=== PATIENT | male | born 1975 | race African-American/Black ===

== ENCOUNTER 2018-05-21 09:15 | Observation (INO) | payer OTHER ==
[2018-05-21 09:26] VITALS: BMI 28.3
[2018-05-21] MEDS ORDERED: SODIUM CHLORIDE 0.9% 500 ML INFUS.BAG IV ONE (09:52)
--- NOTE | 2018-05-21 10:08 | PDOC ---
History of Present Illness - General Chief Complaint: Chest Pain Stated Complaint: CHEST PAIN Time Seen by Provider: 05/21/18 09:31 History Source: Patient Exam Limitations: No Limitations - History of Present Illness Initial Comments: 05/21/18 09:57 HPI 42 YOM with h/o HTN, asthma presenting with chest pain since last night. He describes a left sided, nonradiating and intermittent chest pain as sharp and stabbing. did state the pain intensified when he walked into the ED and while driving himself in today. no alleviating factors. denies any particular triggers or stress. Associated with diffuse chest tightness as well and dizziness, where he feels lightheaded and about to fall over, but no syncope.. Currently no chest pain. h/o admission for chest pain in 2014 with normal echo and stress test. Follows with Dr Orantes, but has not followed with registered representative since his last admission in 2014 for CP in setting of poor control of HTN. Denies fever, chills, SOB, palpitation, dizziness, weakness, N, V, D, abdominal pain, bladder and bowel problems, leg swelling, weakness or paresthesias., No sick contacts or travel. No new changes in medications. Has BP controlled with diet and takes his medications Allergies: NKDA Past Medical History: HTN, asthma Social history: Lives with family. No smoking. No alcohol. No illicit drugs. Surgical history: sacral fistula PMD: Dr Lamberto DICKERSON Constitutional: no fevers or chills. HEENT: +dizziness. no headache. No congestion. No visual/hearing disturbances. CVS: no syncope or palp. +chest pain Resp: no sob. No cough. Gastrointestinal: no abdominal pain, nausea or vomiting. MUSCULOSKELETAL: No joint pain and swelling. No neck or back pain. SKIN: no redness or skin changes, no discharge, no rash. No wounds. Hematologic: no easy bruising/bleeding. NEUROLOGIC: +dizziness. No headache, LOC or altered mental status. No weakness, numbness or tingling. Allergic/Immunologic: no allergies All other systems reviewed and negative, or as documented in HPI. PE: General: Well appearing, awake and alert, NAD. HEENT: NCAT, PERRL, EOMI, clear conjunctiva, anicteric, moist mucus membranes, clear oropharynx, no oral lesions.. Neck: neck supple, FROM Resp: CTAB, normal and even respirations, no respiratory distress CVS: RRR, no murmurs, 2+ peripheral pulses throughout, no peripheral edema Abdomen: soft, NTND, no peritoneal signs. Back: nontender, normal inspection and ROM MSK: no edema, BUENO x4, ROM intact. No clubbing or cyanosis. normal bulk and tone. Extremities: no calf tenderness Neuro: alert, oriented appropriately; no focal neurologic deficits, no cerebellar defects, no nystagmus. 5/5 goldbeater and prox/distal strength in all extrem. SILT. speech clear. Skin: warm and well perfused, cap refill <2 sec, normal color Past History - Past Medical History Allergies/Adverse Reactions: Allergies Allergy/AdvReac Type Severity Reaction Status Date / Time No Known Drug Allergies Allergy Verified 05/21/18 09:26 all bright fruit Allergy Severe throat Uncoded 05/21/18 09:26 swelling Home Medications: Ambulatory Orders NK [No Known Home Medication] 05/21/18 Asthma: Yes (Childhood Asthma) COPD: No HTN: Yes (off medication since weight loss) - Surgical History Abdominal Surgery: No Appendectomy: No Cardiac Surgery: No Cholecystectomy: No - Immunization History Immunization Up to Date: Yes - Suicide/Smoking/Psychosocial Hx Smoking Status: No Smoking History: Never smoked Have you smoked in the past 12 months: No Number of Cigarettes Smoked Daily: 0 Hx Alcohol Use: No Drug/Substance Use Hx: No Substance Use Type: None Hx Substance Use Treatment: No *Physical Exam - Vital Signs Last Vital Signs Temp Pulse Resp BP Pulse Ox 98 F 61 18 125/74 98 05/21/18 09:22 05/21/18 12:16 05/21/18 12:16 05/21/18 12:16 05/21/18 12:16 Heart Score/ECG Review - History History: Slightly suspicious - Electrocardiogram EKG: Non specific repolarization disturbance - Age Age: </= 45 - Risk Factors Risk Factors Heart Score: Yes Hx Hypertension Based on the list above the patient has:: 1-2 risk factors - Troponin Troponin: </= normal limit - Score Heart Score - Total: 2 - ECG Impressions Comment:: 05/21/18 10:33 EKG normal sinus rhythm, no interval abnormalities, narrow QRS, T wave segments and morphology normal. ST segments in precordial and lateral leads upsloping and mildly elevated, appearance of benign early repolarization; nonspecific T wave flattening in AVL only; unchanged EKG from prior 05/21/18 10:34 Moderate Sedation - Procedure Monitoring Vital Signs: Procedure Monitoring Vital Signs Temperature 98 F 05/21/18 09:22 Pulse Rate 61 05/21/18 12:16 Respiratory Rate 18 05/21/18 12:16 Blood Pressure 125/74 05/21/18 12:16 O2 Sat by Pulse Oximetry (%) 98 05/21/18 12:16 ED Treatment Course - LABORATORY CBC & Chemistry Diagram: 05/21/18 10:00 05/21/18 10:00 - ADDITIONAL ORDERS Additional order review: Laboratory Results 05/21/18 05/21/18 10:00 10:00 D-Dimer 227 Sodium 140 Potassium 3.9 Chloride 106 Carbon Dioxide 29 Anion Gap 5 L BUN 12 Creatinine 1.2 Creat Clearance w eGFR > 60 Random Glucose 90 Calcium 8.9 Total Bilirubin 0.8 AST 16 ALT 29 Alkaline Phosphatase 80 Troponin I < 0.02 B-Natriuretic Peptide 38.2 Total Protein 7.4 Albumin 4.2 05/21/18 10:00 RBC 5.03 MCV 87.4 MCHC 34.8 RDW 13.4 MPV 8.0 Neutrophils % 46.2 Lymphocytes % 40.6 H Monocytes % 10.8 H Eosinophils % 1.4 D Basophils % 1.0 - RADIOLOGY Radiology Studies Ordered: Category Date Time Status HEAD CT WITHOUT CONTRAST [CT] Stat CT Scan 05/21/18 11:10 Taken CHEST PA & LAT [RAD] Stat Radiology 05/21/18 09:37 Completed - Medications Given in the ED: ED Medications Discontinued Medications Generic Name Dose Route Start Last Admin Trade Name Freq PRN Reason Stop Dose Admin Acetaminophen 650 mg 05/21/18 11:16 05/21/18 11:27 Tylenol - PO 05/21/18 11:17 650 mg ONCE ONE Administration Aspirin 324 mg 05/21/18 11:16 05/21/18 11:27 Asa - PO 05/21/18 11:17 324 mg ONCE ONE Administration Nitroglycerin 0.4 mg 05/21/18 11:16 05/21/18 11:27 Nitrostat - SL 05/21/18 11:17 0.4 mg ONCE ONE Administration Sodium Chloride 1,000 ml 05/21/18 09:52 05/21/18 10:16 Normal Saline - IV 05/21/18 09:53 1,000 ml ONCE ONE Administration Medical Decision Making - Medical Decision Making 05/21/18 10:31 hpi as documented DDx SOB: ACS, PE, CHF, pulmonary edema, pleurisy, pneumonia, viral syndrome. effusion. anemia, electrolyte/metabolic derangements. Considered but clinically doubt based on HPI and PE: Historically not abrupt in onset, tearing or ripping, pulses symmetric, no evidence of aortic dissection. no e/o zoster or esophageal perf, ptx vitals wnl, no tachycardia or respiratory distress. labs and lytes remarkable for minor leukopenia, but normal trop and bnp, no s/s infection. EKG normal sinus rhythm, no interval abnormalities, narrow QRS, T wave segments and morphology normal. ST segments in precordial and lateral leads upsloping and mildly elevated, appearance of benign early repolarization; nonspecific T wave flattening in AVL only; unchanged from prior EKG Chest pain HEART score 2 which denotes low risk for MACE at 30d. ED course: initially CP free at 1115AM at CT scan, pt clutched his left chest c/o tightness and pain. repeat EKG and VS - unchanged, NSR with VARGAS as above given ASA and nitro for the chest pain, reassessed and improved CT head neg for acute pathology. CXR no acute pathology, no effusion, no infiltrate, normal cardiac silhouette. plan to admit obs for r/o ACS/NATHAN, serial trop/EKG, given recurrent CP and some risk factors and poor cards followup. inpatient echo/stress repeat given last one 2014 and recurrent/exertional symptoms spoke with and admit to Dr Orantes, discussion on impression and plan/management pt made aware of impression and plan, agreeable. 05/21/18 12:01 05/21/18 13:12 *DC/Admit/Observation/Transfer Diagnosis at time of Disposition: Near syncope, Dizziness Chest pain Qualifiers: Chest pain type: unspecified Qualified Code(s): R07.9 - Chest pain, unspecified - Discharge Dispostion Condition at time of disposition: Guarded Decision to Admit order: Yes Decision to Admit order Date/Time: - Referrals - Patient Instructions - Post Discharge Activity
[2018-05-21 10:09] LABS: EOS % 1.4 % (0-4.5); HEMOGLOBIN 15.3 GM/dL (11.7-16.9); LYMPH % 40.6 % (8-40); MCH 30.4 pg (25.7-33.7); MCHC 34.8 g/dl (32.0-35.9); MEAN CELL VOLUME 87.4 fl (80-96); MONO % 10.8 % (3.8-10.2); NEUT % 46.2 % (42.8-82.8); PLATELET COUNT 209 K/MM3 (134-434); RBC 5.03 M/mm3 (4.00-5.60); RDW 13.4 % (11.9-15.9); WHITE BLOOD COUNT 3.2 K/mm3 (4.0-10.0)
[2018-05-21 10:26] LABS: ALBUMIN 4.2 g/dl (3.4-5.0); ALK PHOS 80 U/L (45-117); ANION GAP 5 MMOL/L (8-16); BILIRUBIN,TOTAL 0.8 mg/dL (0.2-1); BLOOD UREA NITROGEN 12 mg/dL (7-18); CALCIUM 8.9 mg/dL (8.5-10.1); CHLORIDE 106 mmol/L (98-107); CO2 29 mmol/L (21-32); CREATININE 1.2 mg/dL (0.55-1.3); GLUCOSE,RANDOM 90 mg/dL (74-106); N-TERMINAL BNP 38.2 pg/ml (5-125); POTASSIUM 3.9 mmol/L (3.5-5.1); SGOT/AST 16 U/L (15-37); SGPT/ALT 29 U/L (13-61); SODIUM 140 mmol/L (136-145); TOT PROT 7.4 g/dl (6.4-8.2)
[2018-05-21] MEDS ORDERED: ASPIRIN 81 MG CHEWABLE TABLETS PO ONE (11:16)
[2018-05-21] MEDS ORDERED: NITROGLYCERIN SUBLINGUAL 1/150 0.4 MG TAB SL ONE (11:16)
[2018-05-21] MEDS ORDERED: ACETAMINOPHEN 325 MG TABLET (FP) PO ONE (11:16)
[2018-05-21] MEDS ORDERED: ASPIRIN 81 MG CHEWABLE TABLETS ONE (11:23)
[2018-05-21] MEDS ORDERED: ACETAMINOPHEN 325 MG TABLET (FP) ONE (11:23)
--- NOTE | 2018-05-21 12:50 | EKG ---
Test Reason : Blood Pressure : / mmHG Vent. Rate : 051 BPM Atrial Rate : 051 BPM P-R Int : 206 ms QRS Dur : 122 ms QT Int : 424 ms P-R-T Axes : 072 -05 050 degrees QTc Int : 390 ms POOR DATA QUALITY, INTERPRETATION MAY BE ADVERSELY AFFECTED SINUS BRADYCARDIA NON-SPECIFIC INTRA-VENTRICULAR CONDUCTION DELAY WHEN COMPARED WITH ECG OF 21-MAY-2018 09:20, NO SIGNIFICANT CHANGE WAS FOUND Confirmed by DIANA MARRERO MD ([id number]) on 05/21/2018 12:50:01 PM Referred By: Confirmed By:DIANA MARRERO MD
--- NOTE | 2018-05-21 12:54 | EKG ---
Test Reason : Blood Pressure : / mmHG Vent. Rate : 066 BPM Atrial Rate : 066 BPM P-R Int : 210 ms QRS Dur : 122 ms QT Int : 388 ms P-R-T Axes : 063 -15 057 degrees QTc Int : 406 ms SINUS RHYTHM WITH 1ST DEGREE A-V BLOCK NON-SPECIFIC INTRA-VENTRICULAR CONDUCTION DELAY WHEN COMPARED WITH ECG OF 27-MAR-2016 22:53, NO SIGNIFICANT CHANGE WAS FOUND Confirmed by DIANA MARRERO MD ([id number]) on 05/21/2018 12:54:34 PM Referred By: Confirmed By:DIANA MARRERO MD
--- NOTE | 2018-05-21 16:05 | HP ---
Admitting History and Physical - Primary Care Physician PCP: Tyler Orantes - Admission Chief Complaint: CP. Dizziness History of Present Illness: Pt with Hx/o HTN (Diet and exercise controlled) started to experience dizziness with standing up over last couple of months and last night and this AM chest pressure and then stabbing CP, associated with dizziness and SOB. History Source: Patient - Past Medical History Cardiovascular: Yes: HTN, Hyperlipdemia, Other (Palpitations) Pulmonary: Yes: Asthma - Smoking History Smoking history: Never smoked Have you smoked in the past 12 months: No Aproximately how many cigarettes per day: 0 - Alcohol/Substance Use Hx Alcohol Use: No Home Medications - Allergies Allergies/Adverse Reactions: Allergies Allergy/AdvReac Type Severity Reaction Status Date / Time No Known Drug Allergies Allergy Verified 05/21/18 09:26 all bright fruit Allergy Severe throat Uncoded 05/21/18 09:26 swelling - Home Medications Home Medications: Ambulatory Orders NK [No Known Home Medication] 05/21/18 Review of Systems - Review of Systems Constitutional: denies: Chills, Fever Eyes: denies: Blurred Vision, Double Vision HENT: denies: Ear Discharge, Ear Pain, Nasal Congestion, Throat Pain Neck: denies: Pain on Movement, Stiffness Cardiovascular: denies: Chest Pain (now), Edema, Palpitations Respiratory: denies: Cough, SOB on Exertion, Wheezing Gastrointestinal: denies: Abdominal Pain, Diarrhea, Nausea, Vomiting Genitourinary: denies: Burning, Discharge Musculoskeletal: denies: Back Pain, Extremity Pain, Muscle Pain Integumentary: denies: Blister, Rash Neurological: denies: Change in LOC, Change in Speech, Numbness, Unsteady Gait, Weakness Endocrine: denies: Excessive Sweating, Intolerance to Cold Hematology/Lymphatic: denies: Easily Bruised, Excessive Bleeding Psychiatric: denies: Altered Sleep Pattern, Anxiety, Depression Physical Examination Vital Signs: Vital Signs Temperature 98.1 F 05/21/18 14:51 Pulse Rate 74 05/21/18 14:51 Respiratory Rate 18 05/21/18 14:51 Blood Pressure 148/82 05/21/18 14:51 O2 Sat by Pulse Oximetry (%) 98 05/21/18 14:51 Constitutional: Yes: No Distress, Calm Eyes: Yes: Conjunctiva Clear, EOM Intact HENT: No: Epistaxis, Pharyngeal Erythema, Rhinnorhea Neck: Yes: Trachea Midline. No: Lymphadenopathy Cardiovascular: Yes: Regular Rate and Rhythm, Murmur (1/6), S1, S2 Respiratory: Yes: Regular, CTA Bilaterally. No: Rales Gastrointestinal: Yes: Normal Bowel Sounds, Soft. No: Tenderness ...Rectal Exam: Yes: Deferred Musculoskeletal: No: Back Pain, Joint Stiffness, Joint Swelling Edema: No Integumentary: No: Bruising, Rash Neurological: Yes: Alert, Oriented, Other (motor and sensory examiantion is symmetric in UE/ LE/ face) Psychiatric: Yes: Alert, Oriented. No: Agitated Labs: CBC, BMP 05/21/18 10:00 05/21/18 10:00 Imaging - Results Chest X-ray: Report Reviewed Problem List - Problems (1) HTN (hypertension) Code(s): I10 - ESSENTIAL (PRIMARY) HYPERTENSION (2) Asthma Code(s): J45.909 - UNSPECIFIED ASTHMA, UNCOMPLICATED (3) Chest pain Code(s): R07.9 - CHEST PAIN, UNSPECIFIED Qualifiers: Chest pain type: unspecified Qualified Code(s): R07.9 - Chest pain, unspecified (4) Dizziness Code(s): R42 - DIZZINESS AND GIDDINESS (5) HLD (hyperlipidemia) Code(s): E78.5 - HYPERLIPIDEMIA, UNSPECIFIED (6) Leukopenia Code(s): D72.819 - DECREASED WHITE BLOOD CELL COUNT, UNSPECIFIED Assessment/Plan PT is monitored on Telemetry Serial CE Cardio Consult AM labs Pt. case was d/w pt's nurse
[2018-05-21] MEDS ORDERED: ATORVASTATIN CA 20 MG TABLET (FP) PO ONE ×2 (16:09→16:30)
[2018-05-21 16:28] LABS: MAGNESIUM 2.1 mg/dL (1.8-2.4)
[2018-05-22 06:26] VITALS: TEMP 97.6
[2018-05-22 07:23] LABS: BASO % 0.7 % (0-2.0); EOS % 2.9 % (0-4.5); HEMATOCRIT 42.8 % (35.4-49); HEMOGLOBIN 15.2 GM/dL (11.7-16.9); LYMPH % 49.3 % (8-40); MCH 31.6 pg (25.7-33.7); MCHC 35.5 g/dl (32.0-35.9); MEAN PLT VOLUME 8.4 fl (7.5-11.1); MONO % 9.1 % (3.8-10.2); PLATELET COUNT 183 K/MM3 (134-434); RBC 4.81 M/mm3 (4.00-5.60); RDW 13.4 % (11.9-15.9); WHITE BLOOD COUNT 3.8 K/mm3 (4.0-10.0)
[2018-05-22 08:06] LABS: ANION GAP 5 MMOL/L (8-16); BLOOD UREA NITROGEN 14 mg/dL (7-18); CALCIUM 8.3 mg/dL (8.5-10.1); CHLORIDE 106 mmol/L (98-107); CO2 27 mmol/L (21-32); GLUCOSE,RANDOM 90 mg/dL (74-106); POTASSIUM 4.1 mmol/L (3.5-5.1); SODIUM 139 mmol/L (136-145)
--- NOTE | 2018-05-22 08:33 | DS ---
Physical Examination Vital Signs: Vital Signs Temperature 97.6 F 05/22/18 06:00 Pulse Rate 60 05/22/18 06:00 Respiratory Rate 20 05/22/18 06:00 Blood Pressure 136/82 05/22/18 06:00 O2 Sat by Pulse Oximetry (%) 98 05/21/18 15:45 Findings/Remarks: feeling better no CP/SOB no headaches or dizziness now but described vertigo with standing up and moving his head CE negative; seen by cardiology cleared to go home tests labs EKG CT xrays d/w pt; WBC borderline low advisaed heme eval outpt dr Guevara over the next few weeks he said he will will order meclizine prn also advised f/u with PCP, cardiology within 1-2 weeks after DC and to see neurology dr Tom and ENT dr Conroy as outpt he said he will Constitutional: Yes: No Distress, Calm Eyes: Yes: Conjunctiva Clear HENT: Yes: Atraumatic Neck: Yes: Supple Cardiovascular: Yes: Regular Rate and Rhythm Respiratory: Yes: CTA Bilaterally Gastrointestinal: Yes: Soft. No: Tenderness Renal/: No: CVA Tenderness - Left, CVA Tenderness - Right Musculoskeletal: No: Joint Stiffness, Joint Swelling Extremities: No: Cold, Cool, Cyanosis Edema: No Integumentary: No: Rash, Venous Stasis Changes Neurological: Yes: WNL, Alert, Oriented ...Motor Strength: WNL Psychiatric: Yes: WNL, Alert, Oriented. No: Agitated, Suicidal Ideation Labs: CBC, BMP 05/22/18 05:15 05/22/18 05:15 Discharge Summary Reason For Visit: ATYPICAL CHEST PAIN Current Active Problems Asthma (Acute) Chest pain (Acute) Dizziness (Acute) HLD (hyperlipidemia) (Acute) HTN (hypertension) (Acute) Leukopenia (Acute) Near syncope (Acute) Procedures: Principal: admitted for OBS for CP and diZziness Other Procedures: monitored in telemetry, CE negative; head CT negative Hospital Course: meclizine prn; felt better; DC home and f/u as advised. Condition: Guarded - Instructions Diet, Activity, Other Instructions: f/u PCP and cardiology in 1-2 weeks check labs CBC CMP in 1-[address] Guevara for low WBC see neurology for dizziness dr Tom, ENT dr CONROY also advised labs and heme eval outpt for low WBC good po hydration RTER if worse or recurrent c/o d/w pt Referrals: Tyler Orantes MD [Primary Care Provider] - Stevenson Tom MD [Staff Physician] - Joe Guevara MD [Staff Physician] - Guy Tovar MD [Staff Physician] - Wei Conroy MD [Staff Physician] - Disposition: HOME - Home Medications Comprehensive Discharge Medication List: Ambulatory Orders NK [No Known Home Medication] 05/21/18
[2018-05-22 09:11] LABS: CHOLESTEROL 169 mg/dL (50-200); HDL CHOLESTEROL 56 mg/dL (40-60); TRIGLYCERIDES 101 mg/dL (0-150)
[2018-05-22 09:22] VITALS: BP 138/71; PULSE 82
[2018-05-22 09:47] LABS: ERYTHROCYTE SEDIMENTATION RATE 3 mm/hr (0-10)
--- NOTE | 2018-05-22 09:57 | CON.CARD ---
Consult Consult Specialty:: Cardiology Referred by:: Tyler Orantes MD Reason for Consultation:: Atypical chest pain - History of Present Illness Chief Complaint: Sharp chest pain and light-headedness History of Present Illness: 42-year-old male with past medical history significant for hypertension, asthma , noncompliance with medications and f/u presents for several days of non- exertional, atypical sharp stabbing chest discomfort associated with positional light-headedness similar to previous presentation 2014 without EKG changes, denies dyspnea on exertion, true syncope, orthopnea, PND or LE edema. Since admission, symptoms have resolved, ruled out for IL. - History Source History Provided By: Patient Limitations to Obtaining History: No Limitations - Past Medical History Cardio/Vascular: Yes: HTN, Hyperlipdemia, Other (Palpitations) Pulmonary: Yes: Asthma - Alcohol/Substance Use Hx Alcohol Use: No - Smoking History Smoking history: Never smoked Have you smoked in the past 12 months: No Aproximately how many cigarettes per day: 0 Home Medications - Allergies Allergies/Adverse Reactions: Allergies Allergy/AdvReac Type Severity Reaction Status Date / Time No Known Drug Allergies Allergy Verified 05/21/18 09:26 all bright fruit Allergy Severe throat Uncoded 05/21/18 09:26 swelling - Home Medications Home Medications: Ambulatory Orders NK [No Known Home Medication] 05/21/18 Review of Systems - Review of Systems Cardiovascular: reports: Chest Pain Neurological: reports: Dizziness Vital Signs: Vital Signs Temperature 97.6 F 05/22/18 09:22 Pulse Rate 82 05/22/18 09:22 Respiratory Rate 20 05/22/18 09:22 Blood Pressure 138/71 05/22/18 09:22 O2 Sat by Pulse Oximetry (%) 98 05/21/18 15:45 Constitutional: Yes: No Distress, Calm, Thin Neck: Yes: Supple Respiratory: Yes: Regular, CTA Bilaterally Gastrointestinal: Yes: Normal Bowel Sounds, Soft Cardiovascular: Yes: Regular Rate and Rhythm JVD: No Carotid Bruit: No Heart Sounds: Yes: S1, S2 Edema: No - Other Data Labs, Other Data: CBC, BMP 05/22/18 05:15 05/22/18 05:15 Troponin, BNP 05/21/18 05/21/18 05/21/18 10:00 12:28 17:30 Troponin I < 0.02 < 0.02 < 0.02 B-Natriuretic Peptide 38.2 Troponin, BNP 05/21/18 05/21/18 05/21/18 10:00 12:28 17:30 Troponin I < 0.02 < 0.02 < 0.02 B-Natriuretic Peptide 38.[address]-T changes Ejection Fraction %: LVEF > or = 40 % Problem List - Problems (1) Asthma Code(s): J45.909 - UNSPECIFIED ASTHMA, UNCOMPLICATED Qualifiers: Asthma severity: mild Asthma persistence: intermittent Asthma complication type: uncomplicated Qualified Code(s): J45.20 - Mild intermittent asthma, uncomplicated (2) HTN (hypertension) Code(s): I10 - ESSENTIAL (PRIMARY) HYPERTENSION Qualifiers: Hypertension type: essential hypertension Qualified Code(s): I10 - Essential (primary) hypertension (3) Near syncope Code(s): R55 - SYNCOPE AND COLLAPSE (4) Atypical chest pain Code(s): R07.89 - OTHER CHEST PAIN Assessment/Plan 1. Chest pain syndrome with atypical features 2. Hypertension/HCVD 3. Asthma 4. Positional dizziness PLAN: 1. Ruled out for IL 2. Previously on lisinopril 3. Echocardiogram and ETT from 2015 reviewed 4. Patient may be dced with f/u in office for further cardiovascular w/u, thank you for consultative opportunity -
[2018-05-22] MEDS ORDERED: MECLIZINE HCL 12.5 MG TABLET PO PRN (10:42)
== END 2018-05-22 12:22 | disposition home or self-care (01) ==
LOC: JER 09:15 → JERBED 11:58 → J4W 14:58
PROVIDERS: ADMIT Specialist; ATTEND Specialist
PROC: 3E0337Z Introduction of Electrolytic and Water Balance Substance into Peripheral Vein, Percutaneous Approach (ICD-10-PCS; principal; 2018-05-21)
DX: R07.89 Other chest pain (principal); R55 Syncope and collapse; R42 Dizziness and giddiness; E78.5 Hyperlipidemia, unspecified; D72.819 Decreased white blood cell count, unspecified
CPT/HCPCS: 36415; 70450-TC; 71046-TC-FY; 80048; 80053; 80061; 82550; 82553; 82607; 82728; 83721; 83735; 83880; 84155; 84156; 84157; 84165; 84439; 84443; 84484; 85025; 85379; 85651; 86038; 93005; 93010; 99285-25; G0378

== ENCOUNTER 2024-04-14 20:22 | Emergency (ER) | payer OTHER ==
[2024-04-14 20:33] VITALS: RESP 18; TEMP 98.7; BMI 30.4
[2024-04-14] MEDS ORDERED: METOCLOPRAMIDE HCL INJECTION 10 MG/2 ML VIAL ONE (21:38)
[2024-04-14] MEDS ORDERED: ACETAMINOPHEN INJECTION 100 ML ONE (21:38)
[2024-04-14] MEDS: SODIUM CHLORIDE 0.9% 500 ML INFUS.BAG IV ONE (21:56)
[2024-04-14] MEDS: METOCLOPRAMIDE HCL INJECTION 10 MG/2 ML VIAL IVPUSH ONE (21:57)
[2024-04-14] MEDS: ACETAMINOPHEN 1000 MG/100 ML BAG IVPB ONE (21:57)
[2024-04-14 22:10] LABS: BASO % 0.7 % (0-2.0); EOS % 1.2 % (0-4.5); HEMATOCRIT 48.3 % (35.4-49); HEMOGLOBIN 16.2 GM/dL (11.7-16.9); LYMPH % 39.3 % (8-40); MCH 29.6 pg (25.7-33.7); MCHC 33.6 g/dl (32.0-35.9); MEAN CELL VOLUME 88.2 fl (80-96); MEAN PLT VOLUME 7.8 fl (7.5-11.1); MONO % 12.4 % (3.8-10.2); NEUT % 46.4 % (42.8-82.8); PLATELET COUNT 206 10^3/uL (134-434); RBC 5.48 M/mm3 (4.00-5.60); RDW 13.7 % (11.9-15.9); WHITE BLOOD COUNT 6.1 K/mm3 (4.0-10.0)
[2024-04-14 22:21] LABS: ACTIVATED PTT 34.2 SECONDS (25.2-36.5); INR 0.96 (0.83-1.09); PROTHROMBIN TIME (PATIENT) 10.9 SEC (9.7-13.0)
[2024-04-14 22:26] LABS: POTASSIUM 3.7 mmol/L (3.5-5.1)
[2024-04-14 22:28] LABS: BLOOD UREA NITROGEN 9.1 mg/dL (7-18); CALCIUM 9.3 mg/dL (8.5-10.1)
[2024-04-14 22:32] LABS: CREATININE 1.1 mg/dL (0.55-1.3)
[2024-04-14 22:33] LABS: BILIRUBIN,TOTAL 0.4 mg/dL (0.2-1); TOT PROT 6.8 g/dl (6.4-8.2)
[2024-04-14 23:51] VITALS: BP 130/79; PULSE 94
[2024-04-14] MEDS: HYDROCHLOROTHIAZIDE 25 MG TABLET (FP) PO ONE (23:57)
== END 2024-04-15 00:08 | disposition home or self-care (01) ==
LOC: JER 20:22
PROC: 3E033NZ Introduction of Analgesics, Hypnotics, Sedatives into Peripheral Vein, Percutaneous Approach (ICD-10-PCS; principal; 2024-04-14)
PROC: 3E033GC Introduction of Other Therapeutic Substance into Peripheral Vein, Percutaneous Approach (ICD-10-PCS; 2024-04-14)
DX: I10 Essential (primary) hypertension (principal); R51.9 Headache, unspecified; R94.6 Abnormal results of thyroid function studies
CPT/HCPCS: 36415; 70450-TC; 80053; 80061; 83036; 84443; 85025; 85610; 85730; 99284-25; J0131